=== PATIENT | female | born 2000 | race Caucasian/White ===

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

== ENCOUNTER → 2022-01-05 | Outpatient (REF) | payer OTHER | LOC: M LAB REF 13:05 | PROVIDERS: ATTEND Internal Medicine Nephrology | DX: N04.1 Nephrotic syndrome with focal and segmental glomerular lesions (principal) ==

== ENCOUNTER → 2022-02-02 | Outpatient (REF) | payer OTHER | LOC: M LAB REF 16:44 | PROVIDERS: ATTEND Internal Medicine Nephrology | DX: N04.1 Nephrotic syndrome with focal and segmental glomerular lesions (principal) ==

== ENCOUNTER → 2022-10-22 | Outpatient (REF) | payer OTHER | LOC: M LAB REF 16:48 | PROVIDERS: ATTEND Internal Medicine Nephrology | DX: N04.1 Nephrotic syndrome with focal and segmental glomerular lesions (principal) ==

== ENCOUNTER → 2022-11-27 | Outpatient (REF) | payer OTHER ==
[2022-11-27 19:03] LABS: CREATININE, URINE 282.2 MG/DL; MAU/CREAT RATIO 3.5 MCG/MG (0.0-30.0)
== END ==
LOC: M LAB REF 16:54
PROVIDERS: ATTEND Internal Medicine Nephrology
DX: N18.2 Chronic kidney disease, stage 2 (mild) (principal)

== ENCOUNTER → 2023-04-28 | Outpatient (REF) | payer OTHER ==
[2023-04-28 18:31] LABS: FREE T4 0.98 NG/DL (0.83-1.43); THYROID PEROXIDASE ANTIBODY < 28.0 U/ML (<60.0); THYROID STIMULATING HORMONE 1.115 uIU/ML (0.48-4.17)
== END ==
LOC: M LAB REF 17:12
PROVIDERS: ATTEND Internal Medicine Endocrinology, Diabetes & Metabolism
DX: E04.0 Nontoxic diffuse goiter (principal)

== ENCOUNTER → 2024-04-14 | Outpatient (REF) | payer OTHER ==
[2024-04-14 20:19] LABS: CREATININE,RANDOM URINE 94.2 MG/DL
[2024-04-14 20:21] LABS: TOTAL PROTEIN,RANDOM URINE < 6.0 MG/DL (0.0-14.0)
== END ==
LOC: M LAB REF 17:14
PROVIDERS: ATTEND Internal Medicine Nephrology
DX: N04.1 Nephrotic syndrome with focal and segmental glomerular lesions (principal)

== ENCOUNTER → 2024-11-24 | Outpatient (REF) | payer BC, OTHER ==
[2024-11-24 18:54] LABS: TOTAL PROTEIN,RANDOM URINE 26.6 MG/DL (0.0-14.0)
[2024-11-24 18:59] LABS: CREATININE,RANDOM URINE 130.1 MG/DL
== END ==
LOC: M LAB REF 17:10
PROVIDERS: ATTEND Internal Medicine Nephrology
DX: N04.1 Nephrotic syndrome with focal and segmental glomerular lesions (principal)

== ENCOUNTER → 2024-12-21 | Outpatient (REF) | payer BC ==
[2024-12-21 19:06] LABS: TOTAL PROTEIN,RANDOM URINE 97.9 MG/DL (0.0-14.0)
[2024-12-21 19:10] LABS: CREATININE,RANDOM URINE 100.2 MG/DL
== END ==
LOC: M LAB REF 17:09
PROVIDERS: ATTEND Internal Medicine Nephrology
DX: N04.1 Nephrotic syndrome with focal and segmental glomerular lesions (principal)

== ENCOUNTER → 2025-01-03 | Outpatient (REF) | payer BC ==
[2025-01-03 18:43] LABS: CREATININE,RANDOM URINE 31.5 MG/DL; TOTAL PROTEIN,RANDOM URINE < 6.0 MG/DL (0.0-14.0)
== END ==
LOC: M LAB REF 16:59
PROVIDERS: ATTEND Internal Medicine Nephrology
DX: N04.1 Nephrotic syndrome with focal and segmental glomerular lesions (principal)

== ENCOUNTER → 2025-06-05 | Outpatient (REF) | payer BC ==
[2025-06-05 19:33] LABS: HEPATITIS B SURFACE ANTIBODY POSITIVE (POSITIVE)
[2025-06-05 20:07] LABS: HEPATITIS C VIRUS ABY INDEX < 0.02 INDEX (<0.8)
== END ==
LOC: M LAB REF 17:32
PROVIDERS: ATTEND Internal Medicine Nephrology
DX: N04.1 Nephrotic syndrome with focal and segmental glomerular lesions (principal)

== ENCOUNTER → 2025-09-14 | Outpatient (REF) | payer BC ==
[2025-09-14 17:55] LABS: TOTAL PROTEIN,RANDOM URINE 413.7 MG/DL (0.0-14.0)
== END ==
LOC: M LAB REF 10:13
PROVIDERS: ATTEND Internal Medicine Nephrology
DX: N04.1 Nephrotic syndrome with focal and segmental glomerular lesions (principal)

== ENCOUNTER → 2025-09-21 | Outpatient (CLI) | payer BC | LOC: M RAD 12:46 | PROVIDERS: ATTEND Nurse Practitioner | DX: R60.0 Localized edema (principal) ==

== ENCOUNTER → 2025-10-11 | Outpatient (REF) | payer BC ==
[2025-10-11 17:49] LABS: FREE T4 1.22 NG/DL (0.89-1.76)
== END ==
LOC: M SFHCCAPE 13:50
PROVIDERS: ATTEND Physician Assistant Medical
DX: R07.89 Other chest pain (principal); R06.09 Other forms of dyspnea; R00.2 Palpitations